=== PATIENT | female | born 1945 | race Caucasian/White ===

== ENCOUNTER 2016-10-02 19:04 | Emergency (ER) | payer MEDICAID ==
[~2016-10-02] VITALS: Ht 157.5 cm; Wt 69.5 kg
[2016-10-02 19:13] VITALS: Ht 157.5 cm; Wt 69.5 kg
[2016-10-02] MEDS ORDERED: ACETAMINOPHEN 500 MG TAB PO STA (22:16)
--- NOTE | 2016-10-02 23:02 | RADRPT ---
PROCEDURE: XR Wrist. CLINICAL INDICATION: Left wrist injury. TECHNIQUE: AP, lateral and oblique views of the left wrist were performed. COMPARISON: No prior studies are available for comparison. FINDINGS: Demineralization limits evaluation of fine osseous detail. Impacted fracture of the distal left rad ial metaphysis with intra-articular component. Fracture at the base of the ulnar styloid, with poss ible comminuted fracture of the styloid. Remaining osseous structures without acute fracture dislocation. IMPRESSION: 1. Impacted comminuted interarticular fracture of the distal left radial metaphysis. 2. Fracture of the ulnar styloid, possible comminuted fracture of the styloid. RPTAT: [facility] Physician Walt Date Time Electronically viewed and signed by Physician Walt on 10/02/2016 23:02 RS/
--- NOTE | 2016-10-02 23:04 | RADRPT ---
PROCEDURE: Left hand. CLINICAL INDICATION: Pain. TECHNIQUE: Three views including PA, lateral and oblique views of the left hand were obtained. COMPARISON: None. FINDINGS: There are fractures of the distal radius involving the articular surface with mild impaction and julian eitan angulation. There is a fracture of the ulnar styloid. There is no dislocation. There is mild to moderate diffuse narrowing of the interphalangeal joints. Bone mineralization is decreased. The re is no radiopaque foreign body or abnormal calcification. IMPRESSION: Distal radius fractures. Ulnar styloid fracture. Osteopenia. Mild osteoarthritis. .Geoff Dunaway MD, Date Time Electronically viewed and signed by .Geoff Dunaway MD, on 10/02/2016 23:03 .T/
[2016-10-03] MEDS ORDERED: IBUP200C PO (00:24)
--- NOTE | 2016-10-03 00:41 | ERD ---
ER Documentation Chief Complaint Date/Time DATE: 10/03/16 TIME: 00:34 Chief Complaint sp ground level fall, left wrist pain HPI 70-year-old female with no significant past medical history presents to the ED complaining of a left wrist injury sustained earlier today at 6:30 PM. States that she had fell on outstretched hand as she was trying to catch her self from acute mechanical fall. States that she tripped over the side of the table but denies any head or neck injuries. Denies any loss of consciousness. Describes the pain as a throbbing sensation and rates it a 9 out of 10. States that it is painful with movement. Denies taking any pain medications. Denies any fever , chills, weakness, numbness or tingling, loss of sensation. ROS All systems reviewed and are negative except as per history of present illness. Medications Home Meds Active Scripts Ibuprofen* (Ibuprofen*) 200 Mg Capsule, 200 MG PO Q6, #30 CAP take with food Prov:MARIAN SANDOVAL PA-C 10/03/16 Allergies Allergies: Coded Allergies: No Known Allergy (Unverified , 10/02/16) PMhx/Soc History of Surgery: Yes (eye surg) Anesthesia Reaction: No Hx Neurological Disorder: No Hx Respiratory Disorders: No Hx Cardiac Disorders: No Hx Psychiatric Problems: No Hx Miscellaneous Medical Probl: No Hx Alcohol Use: No Hx Substance Use: No Hx Tobacco Use: No Smoking Status: Unknown if ever smoked Physical Exam Vitals Vital Signs Date Time Temp Pulse Resp B/P Pulse Ox O2 Delivery O2 Flow Rate FiO2 10/02/16 19:13 97.8 88 20 143/64 100 Physical Exam Const: [id number]-[id number], well-nourished. In no acute distress. Head: Atraumatic, normocephalic Eyes: Normal Conjunctiva without injection. No purulent discharge. PERRLA. EOMI ENT: Normal external ear. Ear canal without erythema. Tympanic membrane pearly moss without effusion or bulging. Nasal canal clear with normal turbinates. Moist oropharynx without tonsillar exudates. Non-erythematous pharynx. Uvula midline. No drooling. No trismus. Neck: No cervical midline tenderness. Full range of motion. No meningismus. No cervical lymphadenopathy. No JVD. Resp: Clear to auscultation bilaterally. No wheezing, rhonchi, rales, or crackles. No accessory muscle use. No retractions. Cardio: Regular rate and rhythm. No murmurs, rubs or gallops. Abd: Soft, non tender, non distended. Normal bowel sounds. No palpable masses. No rebound tenderness. No guarding. Negative McBurney's Point. Negative Lim's Sign. Skin: Normal skin turgor. No petechiae or rashes Back: No midline tenderness. No CVA tenderness. Ext: No cyanosis, or edema. Edema noted over the left wrist. Tenderness to palpation of the left radius and ulna. No erythema. distal pulses intact bilaterally. Cap refill less than 2 seconds. Neur: Awake and alert. Normal gait. Normal coordination. Cranial Nerves II- VII intact. Normal finger to nose. Muscle strength 5/5. Sensation intact. Psych: Normal Mood and Affect Results 24 hrs Current Medications Medications (Trade) Dose Ordered Sig/Nacho Route PRN Reason Start Time Stop Time Status Last Admin Dose Admin Acetaminophen (Tylenol Tab) 500 mg ONCE STAT PO 10/02/16 22:16 10/02/16 22:21 DC 10/02/16 23:02 Procedures/MDM 70-year-old female with no significant past medical history presents the ED complaining of a left wrist injury. Patient is afebrile and nontoxic- appearing. Patient has normal vital signs. A left hand and left x-ray was ordered to further evaluate patient. Patient was given Tylenol with improvement of her pain. She did not sustain any head or neck injuries. There is low suspicion for any intracranial bleed. PROCEDURE: Left hand. CLINICAL INDICATION: Pain. TECHNIQUE: Three views including PA, lateral and oblique views of the left hand were obtained. COMPARISON: None. FINDINGS: There are fractures of the distal radius involving the articular surface with mild impaction and dorsal angulation. There is a fracture of the ulnar styloid. There is no dislocation. There is mild to moderate diffuse narrowing of the interphalangeal joints. Bone mineralization is decreased. There is no radiopaque foreign body or abnormal calcification. IMPRESSION: Distal radius fractures. Ulnar styloid fracture. Osteopenia. Mild osteoarthritis. PROCEDURE: XR Wrist. CLINICAL INDICATION: Left wrist injury. TECHNIQUE: AP, lateral and oblique views of the left wrist were performed. COMPARISON: No prior studies are available for comparison. FINDINGS: Demineralization limits evaluation of fine osseous detail. Impacted fracture of the distal left radial metaphysis with intra-articular component. Fracture at the base of the ulnar styloid, with possible comminuted fracture of the styloid. Remaining osseous structures without acute fracture dislocation. IMPRESSION: 1. Impacted comminuted interarticular fracture of the distal left radial metaphysis. 2. Fracture of the ulnar styloid, possible comminuted fracture of the styloid. Patient is placed in a sugar tong splint of her left wrist for the impacted comminuted intra-articular fracture of the distal left radial metaphysis and fracture of the ulna styloid with possible comminuted fracture of the styloid. Splint Assessment: Neurovascularly intact pre and post splint placement with good fit. This case was discussed with my supervising physician, Dr. shen and who agreed with the management and discharge plan Patient's extremity symptoms have stabilized while they have been evaluated in the department and are appropriate for outpatient follow up. No evidence of dislocations, compartment syndrome, neurologic injury, vascular injury, open joint, open fracture, tendon laceration, septic arthritis, osteomyelitis, DVT, foreign body, or other emergent conditions. Discharge medications: Ibuprofen Follow up with primary care physician in 1-2 days. Instructed patient to return to the ED sooner for any worsening symptoms. Patient's questions were answered. Patient understood and agreed with discharge plan. Patient discharged stable. Departure Diagnosis: Primary Impression: Wrist fracture Encounter type: initial encounter Fracture type: closed Laterality: right Qualified Code: S62.101A - Wrist fracture, right, closed, initial encounter Condition: Stable Patient Instructions: Fracture, Wrist [General] Referrals: [facility] YOU HAVE RECEIVED A MEDICAL SCREENING EXAM AND THE RESULTS INDICATE THAT YOU DO NOT HAVE A CONDITION THAT REQUIRES URGENT TREATMENT IN THE EMERGENCY DEPARTMENT. FURTHER EVALUATION AND TREATMENT OF YOUR CONDITION CAN WAIT UNTIL YOU ARE SEEN IN YOUR DOCTORS OFFICE WITHIN THE NEXT 1-2 DAYS. IT IS YOUR RESPONSIBILITY TO MAKE AN APPOINTMENT FOR FOLOW-UP CARE. IF YOU HAVE A PRIMARY DOCTOR --you should call your primary doctor and schedule an appointment IF YOU DO NOT HAVE A PRIMARY DOCTOR YOU CAN CALL OUR PHYSICIAN REFERRAL HOTLINE AT IF YOU CAN NOT AFFORD TO SEE A PHYSICIAN YOU CAN CHOSE FROM THE FOLLOWING [facility] [address] [facility]. [facility] [address] [facility] [facility] [address] [facility] [address] [facility] [facility] [address] [facility]. [facility] [address] [facility]. [facility] YOU HAVE RECEIVED A MEDICAL SCREENING EXAM AND THE RESULTS INDICATE THAT YOU DO NOT HAVE A CONDITION THAT REQUIRES URGENT TREATMENT IN THE EMERGENCY DEPARTMENT. FURTHER EVALUATION AND TREATMENT OF YOUR CONDITION CAN WAIT UNTIL YOU ARE SEEN IN YOUR DOCTORS OFFICE WITHIN THE NEXT 1-2 DAYS. IT IS YOUR RESPONSIBILITY TO MAKE AN APPOINTMENT FOR FOLOW-UP CARE. IF YOU HAVE A PRIMARY DOCTOR --you should call your primary doctor and schedule and appointment IF YOU DO NOT HAVE A PRIMARY DOCTOR YOU CAN CALL OUR PHYSICIAN REFERRAL HOTLINE AT . IF YOU CAN NOT AFFORD TO SEE A PHYSICIAN YOU CAN CHOSE FROM THE FOLLOWING [facility] INSTITUTIONS: [facility] [address] [place] [address] [facility] [address] [place] [address] [facility] + [facility] [address] [place] [address] [facility] Ur[facility] Care 7 a.m.- 11 p.m. Every Day of the Week NO APPOINTMENT OR AUTHORIZATION NEEDED SO [facility] Hours: Mon-Tue 9:00 AM - 5:00 PM Additional Instructions: Visite a jen fong para un EXAMEN.Regrese a estas instalaciones si no se mejora carley esperbamos o carley le dijimos. MARIAN SANDOVAL PA-C Oct 03, 2016 00:41
== END 2016-10-03 00:50 | disposition home or self-care (01) ==
LOC: FTE 19:04
DX: S52.502A Unspecified fracture of the lower end of left radius, initial encounter for closed fracture (principal); S52.612A Displaced fracture of left ulna styloid process, initial encounter for closed fracture; W01.0XXA Fall on same level from slipping, tripping and stumbling without subsequent striking against object, initial encounter; Y92.9 Unspecified place or not applicable
CPT/HCPCS: 29125; 73110; 73130; Z7502; Z7610

== ENCOUNTER 2017-08-17 10:09 | Emergency (ER) | payer MEDICAID ==
[~2017-08-17] VITALS: Wt 77.3 kg
[~2017-08-17 10:09] MED LIST: IBUP200C PO
--- NOTE | 2017-08-17 12:04 | RADRPT ---
PROCEDURE: XR Chest. CLINICAL INDICATION: Cough TECHNIQUE: Single frontal view of the chest was obtained. COMPARISON: None FINDINGS: The heart is within normal limits. The thoracic aorta is calcified. There are mild chronic interstitial changes throughout the lungs. There is mild right lower lobe linear atelectasis. There is no pleural effusion or pneumothorax. RPTAT: AA IMPRESSION: Mild chronic interstitial changes throughout the lungs. Mild right lower lobe linear atelectasis. Calcified aorta consistent with atherosclerotic disease. .Manjeet Posadas MD, MD Date Time Electronically viewed and signed by .Manjeet Posadas MD, on 08/17/2017 12:04 .S/
[2017-08-17] MEDS ORDERED: ALBU8.5H3 INH (12:10)
[2017-08-17] MEDS ORDERED: PROM6.25 PO (12:10)
[2017-08-17] MEDS ORDERED: MED4DP PO (12:11)
--- NOTE | 2017-08-17 12:16 | ERD ---
ER Documentation Chief Complaint Chief Complaint cough, fever (KIMBERKORTNEY Walls) HPI This is a 71-year-old female that presents to the ER with a cough and fever since Tuesday. Patient states that cough is productive and constant, it is worse at night. Denies any chest pain or shortness of breath. Patient also has a sore throat, however he denies any difficulty in swallowing. She has been taking Advil pdmr-umz-gpnfrki however has not worked. No sick contacts at home. (KORTNEY QUIROGA) ROS 12 point review of systems was done, all negative except per HPI.. (KORTNEY QUIROGA) Medications Home Meds Active Scripts Methylprednisolone* (Medrol* DOSE PACK) 4 Mg/Dose-Pack Tab.ds.pk, 4 MG PO . DIRECTED for 6 Days, PACKET Prov:KORTNEY QUIROGA 08/17/17 Albuterol Sulfate* (Proair HFA*) 8.5 Gm Hfa.aer.ad, 2 PUFF INH Q4, #1 INHALER Prov:KORTNEY QUIROGA 08/17/17 Promethazine Hcl* (Promethazine Hcl* Syrup) 6.25 Mg/5 Ml Syrup, 12.5 MG PO Q6H Y for COUGH for 3 Days, ML Prov:KORTNEY QUIROGA 08/17/17 Ibuprofen* (Ibuprofen*) 200 Mg Capsule, 200 MG PO Q6, #30 CAP take with food Prov:MARIAN SANDOVAL PA-C 10/03/16 Allergies Allergies: Coded Allergies: No Known Allergy (Unverified , 10/02/16) PMhx/Soc History of Surgery: Yes (eye surg) Anesthesia Reaction: No Hx Neurological Disorder: No Hx Respiratory Disorders: No Hx Cardiac Disorders: No Hx Psychiatric Problems: No Hx Miscellaneous Medical Probl: No Hx Alcohol Use: No Hx Substance Use: No Hx Tobacco Use: No (KORTNEY QUIROGA) Physical Exam Vitals Vital Signs Date Time Temp Pulse Resp B/P Pulse Ox O2 Delivery O2 Flow Rate FiO2 08/17/17 10:24 97.9 79 20 136/60 98 (GILLIAN FERRERA MD) Physical Exam GENERAL: The patient is well-developed, well-nourished, in no acute distress. NECK: Cervical spine is non tender with no step off. Supple, no nuchal rigidity HEENT: Atraumatic. Pupils equal, round and reactive to light. Extraocular muscles are grossly intact. Conjunctivae pink, no discharge. Bilateral tympanic membranes are clear with no evidence of erythema, effusion or dulling of the light reflex. Tonsilar erythema with no exudates or uvular deviation. Clear rhinorrhea. RESPIRATORY: Clear to auscultation bilaterally. There are no rales, wheezes or rhonchi. HEART: Regular rate and rhythm. No murmurs, clicks, rubs or gallops. EXTREMITIES: No clubbing or cyanosis. Full range of motion. Grossly neurovascularly intact. NEUROLOGIC: Alert and oriented. Cranial nerves II through XII are intact. SKIN: There is no rash. The skin is warm and dry. (KORTNEY QUIROGA) Results 24 hrs [place] [address] Radiology Main Line: [phone] DIAGNOSTIC IMAGING REPORT Patient: DELILAH GOVEA : 1945 Age: 71 Sex: F MR #: [id number] DOS: 08/17/17 1120 Ordering MD: KORTNEY QUIROGA. PA-C Location: [facility] Room/Bed: PROCEDURE: XR Chest. CLINICAL INDICATION: Cough TECHNIQUE: Single frontal view of the chest was obtained. COMPARISON: None FINDINGS: The heart is within normal limits. The thoracic aorta is calcified. There are mild chronic interstitial changes throughout the lungs. There is mild right lower lobe linear atelectasis. There is no pleural effusion or pneumothorax. RPTAT: AA IMPRESSION: Mild chronic interstitial changes throughout the lungs. Mild right lower lobe linear atelectasis. Calcified aorta consistent with atherosclerotic disease. .Manjeet Posadas MD, Date Time Electronically viewed and signed by .Manjeet Posadas MD, on 08/17/2017 12: 04 .S/ CC: KORTNEY QUIROGA (KORTNEY QUIROGA) Procedures/MDM Differential diagnosis includes but is not limited to; Viral URI, allergic rhinitis, bronchitis, pertussis,pneumonia. This is likely viral in etiology. Clinical suspicion for pneumonia is low as patient appears well, is not hypoxic or in any respiratory distress. Additionally, patients physical examination is benign. Plan was discussed with patient they understand and agree. Patient needs to follow up with PCP in 1-2 days or return to ER sooner if symptoms worsen. (KORTNEY QUIROGA MD note- Subjective-patient presents with URI symptoms. Agree with detailed history and physical of mid-level provider. Onryiwver-wzi-gpl-appearing, lungs clear without wheezing, rales or rhonchi Chest X-ray 1V Interpreted by me: Soft Tissue: No acute abnormalities Bones: No acute abnormalities Mediastinum/Cardiac Silhouette/Lungs: [No acute abnormalities]. Impression- normal 1 view chest x-ray Assessment-URI Plan-symptomatic treatment per instructions of mid-level provider and return precautions and primary care follow-up. (GILLIAN FERRERA MD) Departure Diagnosis: Primary Impression: Bronchitis Condition: Stable Patient Instructions: Bronchitis, No Antibiotic (Adult) Additional Instructions: Llame al doctor MAANA y lissette scooby LACY PARA DENTRO DE 1-2 ATKINSON.Dgale a la secretaria que nosotros le instruimos hacer esta lacy.Avise o llame si li condicin se empeora antes de la lacy. Regresa aqui si peor o no mejor. KORTNEY QUIROGA Aug 17, 2017 12:16 GILLIAN FERRERA MD Aug 17, 2017 12:54
== END 2017-08-17 12:34 | disposition home or self-care (01) ==
LOC: FTE 10:09
DX: J40 Bronchitis, not specified as acute or chronic (principal)
CPT/HCPCS: 71010; Z7502

== ENCOUNTER 2017-09-10 08:36 | Emergency (ER) | END 2017-09-10 13:00 | disposition home or self-care (01) ==

== ENCOUNTER 2017-11-05 09:51 | Emergency (ER) | END 2017-11-05 11:15 | disposition home or self-care (01) ==

== ENCOUNTER 2017-11-13 08:53 | Emergency (ER) | END 2017-11-13 11:12 | disposition home or self-care (01) ==

== ENCOUNTER 2019-03-27 16:45 | Emergency (ER) | payer MEDICAID ==
[~2019-03-27] VITALS: Ht 154.9 cm; Wt 73.7 kg
[~2019-03-27 16:45] MED LIST changes: +ACET500C5 PO; +ADV10050 INHALATION; +ALBU8.5H8 INH; +AMOX1TAB10 PO; +IBUP-1982 PO; -IBUP200C PO; +KETO5DRO71 OP; +MED4DP PO; +NAPR-985 PO; +PROM6.2515 PO; +TRAM50TA2 PO
[2019-03-27 16:53] VITALS: Ht 154.9 cm; Wt 73.7 kg
[2019-03-27] MEDS ORDERED: traMADol 50 MG TAB PO ONE (18:00)
[2019-03-27] MEDS ORDERED: IBUP-1542 PO (20:09)
[2019-03-27] MEDS ORDERED: TRAM50TA2 PO (20:10)
[2019-03-27 20:22] VITALS: BP 166/75; PULSE 58; RESP 16
--- NOTE | 2019-03-29 01:39 | ERD ---
ER Documentation Chief Complaint Chief Complaint lt leg pain x 2 weeks HPI History of Present Illness: [id number]-old female who denies a past medical history coming in today due to complaint of left leg pain is been present for 2 weeks. Patient reports that pain is from the back of her knee extending all the way down to her lower calf. Patient denies injury or trauma. Patient denies recent travel on road trips or flights. Patient denies recent surgery. At home pharmacological/nonpharmacological treatment for symptoms: Denies Denies social concerns; Denies recent foreign travel ROS All systems reviewed and are negative except as per history of present illness. Medications Home Meds Active Scripts Tramadol HCl (Tramadol HCl) 50 Mg Tablet, 50 MG PO Q6 PRN for PAIN, #12 TAB Prov:OH CASTILLO NP 03/27/19 Ibuprofen* (Motrin*) 600 Mg Tab, 600 MG PO Q8 PRN for PAIN AND/OR INFLAMMATION, #30 TAB Prov:OH CASTILLO NP 03/27/19 Acetaminophen* (Tylophen*) 500 Mg Capsule, 1 CAP PO Q6H PRN for PAIN AND OR ELEVATED TEMP, #30 CAP Prov:HORTENSIA PRESTON PA-C 11/13/17 Naproxen* (Naprosyn*) 500 Mg Tablet, 500 MG PO BID PRN for PAIN AND/OR INFLAMMATION, #30 TAB Prov:HORTENSIA PRESTONC 11/13/17 Tramadol HCl (Tramadol HCl) 50 Mg Tablet, 50 MG PO Q4 PRN for PAIN, #20 TAB Prov:HORTENSIA PRESTON PA-C 11/13/17 Ketotifen Fumarate (ZADITOR) 5 Ml Drops, 5 ML OP BID, #1 BOTTLE Prov:HANNAH BLANDC 11/05/17 Amoxicillin/Potassium Clav (Amox-Clav 875-125 mg Tablet) 875-125 mg Tab, 1 TAB PO BID for 7 Days, #14 TAB Prov:JESSICA PHAM 09/10/17 Salmeterol Xinaf-Fluticasone* (Advair*) 100/50 Diskus Inhaler, 1 INH INHALATION BID, #1 INHALER Prov:JESSICA PHAM 09/10/17 Albuterol Sulfate* (Proair HFA*) 8.5 Gm Hfa.aer.ad, 2 PUFF INH Q4, #1 INHALER Prov:JESSICA PHAM 09/10/17 Methylprednisolone* (Medrol* DOSE PACK) 4 Mg/Dose-Pack Tab.ds.pk, 4 MG PO . DIRECTED for 6 Days, PACKET Prov:KORTNEY QUIROGA 08/17/17 Albuterol Sulfate* (Proair HFA*) 8.5 Gm Hfa.aer.ad, 2 PUFF INH Q4, #1 INHALER Prov:KORTNEY QUIROGA 08/17/17 Promethazine Hcl* (Promethazine Hcl* Syrup) 6.25 Mg/5 Ml Syrup, 12.5 MG PO Q6H PRN for COUGH for 3 Days, ML Prov:KORTNEY QUIROGA 08/17/17 Ibuprofen* (Ibuprofen*) 200 Mg Capsule, 200 MG PO Q6, #30 CAP take with food Prov:MARIAN SANDOVAL PA-C 10/03/16 Allergies Allergies: Coded Allergies: No Known Allergy (Unverified , 03/27/19) PMhx/Soc History of Surgery: Yes (eye surgery, left wrist) Anesthesia Reaction: No Hx Neurological Disorder: No Hx Respiratory Disorders: No Hx Cardiac Disorders: No Hx Psychiatric Problems: No Hx Miscellaneous Medical Probl: No Hx Alcohol Use: No Hx Substance Use: No Hx Tobacco Use: No Smoking Status: Never smoker FmHx Family History: No diabetes Physical Exam Vitals Vital Signs Date Temp Pulse Resp B/P (MAP) Pulse Ox O2 O2 Flow FiO2 Time Delivery Rate 03/27/19 58 16 166/75 99 Room Air 20:22 (105) 03/27/19 98.1 71 18 149/94 97 16:53 (112) Physical Exam Const: No acute distress, afebrile Head: Atraumatic Eyes: Normal Conjunctiva ENT: Normal External Ears, Nose and Mouth. Neck: Full range of motion. No meningismus. Resp: Clear to auscultation bilaterally Cardio: Regular rate and rhythm, no murmurs Abd: Soft, non tender, non distended. No guarding, no masses, no rigidity Skin: No petechiae or rashes Back: No midline or flank tenderness Ext: No cyanosis, or edema; left lower extremity: Tenderness to palpation along posterior of left lower extremity from behind the knee to calf, mild tenderness to palpation to lateral aspect of knee, no swelling, no erythema, no skin changes Neur: Awake and alert x3, speaking in clear sentences, no focal deficits or facial asymmetry Psych: Normal Mood and Affect Results 24 hrs Current Medications Medications Dose Sig/Nacho Start Time Status Last (Trade) Ordered Route PRN Stop Time Admin Dose Reason Admin Tramadol 50 mg ONCE ONCE 03/27/19 DC 03/27/19 HCl PO 18:00 17:48 (Ultram) 03/27/19 18:01 Procedures/MDM ED COURSE: ED course includes a thorough examination and history. The patient was stable throughout ED course. I kept the patient and/or family informed of laboratory and diagnostic imaging results throughout the ED course. MEDICATIONS GIVEN IN ER: Tramadol Patient tolerated medication well with no adverse reactions. Patient reported improvement in pain. DIAGNOSTIC IMAGING: Read by radiologist. Left knee x-ray: IMPRESSION: Negative for evidence of acute fracture or dislocation of the left knee. RPTAT: HCTS Ila Flores Physician Date Time Electronically viewed and signed by Ila Flores Physician on 03/27/2019 19:23 Left extremity venous study: IMPRESSION: No sonographic evidence for deep venous thrombosis. .Manjeet Posadas MD, MD Date Time Electronically viewed and signed by .Manjeet Posadas MD, MD on 03/27/2019 18:35 PROCEDURES: None. MEDICAL DECISION MAKING: Low suspicion for life-threatening medical emergency. Low suspicion for infectious process. Low suspicion for DVT. Low suspicion for orthopedic emergency that requires immediate hospitalization or surgical intervention. Low suspicion for femur fracture, patella fracture, tibial plateau fracture, septic joint, gout, popliteal cyst, prepatellar bursitis, patellofemoral syndrome, patellar tendinitis, [place]-Sch[place]atter disease, osteoarthritis, osteomyelitis, DVT or compartment syndrome. At this time, unable to rule out an y meniscus and knee ligament injuries. Otherwise healthy patient presenting with constellation of symptoms likely representing uncomplicated pain of right leg as characterized by history, physical exam findings. Patient reassessment @ 2011: Results discussed. Pain decreased medication administration patient hemodynamically stable. No respiratory distress, otherwise relatively well appearing and nontoxic. Disposition given. Patient educated on diagnoses, prescriptions, follow-up care, return precautions. Strict return precautions given for worsening condition; questions answered discharge. Patient verbalizes understanding of discharge instructions. PRESCRIPTIONS FOR HOME: Tramadol, ibuprofen DISPOSITION: DISCHARGE At this time, patient is stable for discharge and outpatient management. I have instructed the patient to follow-up with his/her primary care physician in 1-2 days. I have discussed with the patient the possibility of needing to see a specialist for further workup and imaging studies if symptoms persist. I have instructed the patient to promptly return to the ER for any new or worsening symptoms including increased pain, fever, nausea, vomiting, weakness or LOC. The patient and/or family expressed understanding of and agreement with this plan. All questions were answered. Home care instructions were provided. DISCLAIMER: Inadvertent spelling and grammatical errors are likely due to EHR/dictation software use and do not reflect on the overall quality of patient care. Also, please note that the electronic time recorded on this note does not necessarily reflect the actual time of the patient encounter. Departure Diagnosis: Primary Impression: Pain of right leg Condition: Stable Patient Instructions: Knee Pain, Uncertain Cause Referrals: [facility] YOU HAVE RECEIVED A MEDICAL SCREENING EXAM AND THE RESULTS INDICATE THAT YOU DO NOT HAVE A CONDITION THAT REQUIRES URGENT TREATMENT IN THE EMERGENCY DEPARTMENT. FURTHER EVALUATION AND TREATMENT OF YOUR CONDITION CAN WAIT UNTIL YOU ARE SEEN I N YOUR DOCTORS OFFICE WITHIN THE NEXT 1-2 DAYS. IT IS YOUR RESPONSIBILITY TO MAKE AN APPOINTMENT FOR FOLOW-UP CARE. IF YOU HAVE A PRIMARY DOCTOR --you should call your primary doctor and schedule an appointment IF YOU DO NOT HAVE A PRIMARY DOCTOR YOU CAN CALL OUR PHYSICIAN REFERRAL HOTLINE AT IF YOU CAN NOT AFFORD TO SEE A PHYSICIAN YOU CAN CHOSE FROM THE FOLLOWING [facility] [address] [facility]. [facility] [address] [facility]. [facility] [address] [facility]. [facility] [address] [facility]. [facility] [address] [facility]. [facility] [address] [facility]. [facility] YOU HAVE RECEIVED A MEDICAL SCREENING EXAM AND THE RESULTS INDICATE THAT YOU DO NOT HAVE A CONDITION THAT REQUIRES URGENT TREATMENT IN THE EMERGENCY DEPARTMENT. FURTHER EVALUATION AND TREATMENT OF YOUR CONDITION CAN WAIT UNTIL YOU ARE SEEN IN YOUR DOCTORS OFFICE WITHIN THE NEXT 1-2 DAYS. IT IS YOUR RESPONSIBILITY TO MAKE AN APPOINTMENT FOR FOLOW-UP CARE. IF YOU HAVE A PRIMARY DOCTOR --you should call your primary doctor and schedule and appointment IF YOU DO NOT HAVE A PRIMARY DOCTOR YOU CAN CALL OUR PHYSICIAN REFERRAL HOTLINE AT . IF YOU CAN NOT AFFORD TO SEE A PHYSICIAN YOU CAN CHOSE FROM THE FOLLOWING [facility] INSTITUTIONS: [facility] [address] [place] [address] [facility] [address] [place] [address] [facility] [address] [place] [address] Additional Instructions: Thank you very much for allowing us to participate in your care. Your health and safety is our top priority at [facility]. It is important to read all discharge instructions and education provided in your discharge packet. Call your primary care doctor TOMORROW for an appointment during the next 2-4 days and bring all the information and medications prescribed. Have prescriptions filled and follow precisely the directions on the label. If the symptoms get worse and your provider is unavailable, return to the Emergency Department immediately. OH CASTILLO NP Mar 29, 2019 01:39
== END 2019-03-27 20:23 | disposition home or self-care (01) ==
LOC: FTE 16:45
DX: M79.605 Pain in left leg (principal)
CPT/HCPCS: 73562; 93971; Z7502; Z7610